=== PATIENT | male | born 1950 | race Caucasian/White ===

== ENCOUNTER 2018-12-12 09:35 | Outpatient (CLI) | payer MEDICARE, OTHER ==
--- NOTE | 2018-12-12 09:47 | XRAY Report ---
Reason: R thumb pain Procedure Date: 12/12/2018 Accession Number: [id number] / [id number] Procedure: XRN - Hand 3 View RT CPT Code: FULL RESULT: EXAM: RIGHT HAND RADIOGRAPHY EXAM DATE: 12/12/2018 08:55 AM. CLINICAL HISTORY: Right thumb pain COMPARISON: None. TECHNIQUE: 3 views. FINDINGS: Bones: No acute fracture. Joints: There is advanced carpal-first metacarpal joint arthropathy with mild lateral subluxation of first metacarpal. Soft Tissues: Normal. No soft tissue swelling. IMPRESSION: 1. No acute fracture. 2. Advanced carpal-first metacarpal joint arthropathy as described above. RADIA
== END 2018-12-12 09:36 | disposition home or self-care (01) ==
LOC: DI.N 09:35
PROVIDERS: ATTEND Internal Medicine
DX: M18.11 Unilateral primary osteoarthritis of first carpometacarpal joint, right hand (principal); M79.644 Pain in right finger(s)

== ENCOUNTER 2019-04-02 08:00 | Outpatient (CLI) | payer MEDICARE, OTHER | END 2019-04-02 23:59 | disposition home or self-care (01) | LOC: LAB.N 08:00 | PROVIDERS: ATTEND Internal Medicine | DX: Z79.01 Long term (current) use of anticoagulants (principal); Z86.718 Personal history of other venous thrombosis and embolism | CPT/HCPCS: 85610 ==

== ENCOUNTER 2020-09-14 10:27 | Outpatient (CLI) | payer MEDICARE, OTHER | END 2020-09-14 10:28 | disposition home or self-care (01) | LOC: LAB.N 10:27 | PROVIDERS: ATTEND Internal Medicine | DX: Z79.01 Long term (current) use of anticoagulants (principal); Z86.718 Personal history of other venous thrombosis and embolism | CPT/HCPCS: 36416; 85610 ==

== ENCOUNTER 2020-10-15 15:07 | Outpatient (CLI) | payer MEDICARE, OTHER | END 2020-10-15 15:08 | disposition home or self-care (01) | LOC: LAB.N 15:07 | PROVIDERS: ATTEND Internal Medicine | DX: Z79.01 Long term (current) use of anticoagulants (principal); Z86.718 Personal history of other venous thrombosis and embolism | CPT/HCPCS: 36416; 85610 ==

== ENCOUNTER 2020-11-03 14:52 | Outpatient (CLI) | payer MEDICARE, OTHER | END 2020-11-03 23:59 | disposition home or self-care (01) | LOC: LAB.N 14:52 | PROVIDERS: ATTEND Internal Medicine | DX: Z51.81 Encounter for therapeutic drug level monitoring (principal); Z79.01 Long term (current) use of anticoagulants; Z86.718 Personal history of other venous thrombosis and embolism | CPT/HCPCS: 85610 ==

== ENCOUNTER 2020-11-30 10:27 | Outpatient (CLI) | payer MEDICARE, OTHER | END 2020-11-30 10:28 | disposition home or self-care (01) | LOC: LAB.N 10:27 | PROVIDERS: ATTEND Internal Medicine | DX: Z79.01 Long term (current) use of anticoagulants (principal); Z86.718 Personal history of other venous thrombosis and embolism | CPT/HCPCS: 85610 ==

== ENCOUNTER 2021-01-06 10:31 | Outpatient (CLI) | payer MEDICARE, OTHER | END 2021-01-06 10:32 | disposition home or self-care (01) | LOC: LAB.N 10:31 | PROVIDERS: ATTEND Internal Medicine | DX: Z79.01 Long term (current) use of anticoagulants (principal); Z86.718 Personal history of other venous thrombosis and embolism | CPT/HCPCS: 85610 ==

== ENCOUNTER 2021-01-13 10:52 | Outpatient (CLI) | payer MEDICARE, OTHER | END 2021-01-13 10:53 | disposition home or self-care (01) | LOC: LAB.N 10:52 | PROVIDERS: ATTEND Internal Medicine | DX: Z79.01 Long term (current) use of anticoagulants (principal); Z86.718 Personal history of other venous thrombosis and embolism | CPT/HCPCS: 36416; 85610 ==

== ENCOUNTER 2021-01-20 10:17 | Outpatient (CLI) | payer MEDICARE, OTHER | END 2021-01-20 10:18 | disposition home or self-care (01) | LOC: LAB.N 10:17 | PROVIDERS: ATTEND Internal Medicine | DX: Z79.01 Long term (current) use of anticoagulants (principal); Z86.718 Personal history of other venous thrombosis and embolism | CPT/HCPCS: 36416; 85610 ==

== ENCOUNTER 2021-02-23 11:32 | Outpatient (CLI) | payer MEDICARE, OTHER | END 2021-02-23 11:33 | disposition home or self-care (01) | LOC: LAB.N 11:32 | PROVIDERS: ATTEND Internal Medicine | DX: Z79.01 Long term (current) use of anticoagulants (principal); Z86.718 Personal history of other venous thrombosis and embolism | CPT/HCPCS: 85610 ==

== ENCOUNTER 2021-03-03 11:04 | Outpatient (CLI) | payer MEDICARE, OTHER | END 2021-03-03 11:05 | disposition home or self-care (01) | LOC: LAB.N 11:04 | PROVIDERS: ATTEND Internal Medicine | DX: Z79.01 Long term (current) use of anticoagulants (principal); Z86.718 Personal history of other venous thrombosis and embolism | CPT/HCPCS: 36416; 85610 ==

== ENCOUNTER 2021-03-17 15:20 | Outpatient (CLI) | payer MEDICARE | END 2021-03-17 15:21 | disposition home or self-care (01) | LOC: LAB.N 15:20 | PROVIDERS: ATTEND Internal Medicine | DX: Z79.01 Long term (current) use of anticoagulants (principal); Z86.718 Personal history of other venous thrombosis and embolism | CPT/HCPCS: 36416; 85610 ==

== ENCOUNTER 2021-04-06 08:11 | Outpatient (CLI) | payer MEDICARE | END 2021-04-06 08:12 | disposition home or self-care (01) | LOC: LAB.N 08:11 | PROVIDERS: ATTEND Internal Medicine | DX: Z53.9 Procedure and treatment not carried out, unspecified reason (principal) ==

== ENCOUNTER 2021-04-06 08:45 | Outpatient (CLI) | payer MEDICARE | END 2021-04-06 23:59 | disposition home or self-care (01) | LOC: LAB.N 08:45 | PROVIDERS: ATTEND Internal Medicine | DX: Z79.01 Long term (current) use of anticoagulants (principal); Z86.718 Personal history of other venous thrombosis and embolism | CPT/HCPCS: 36416; 85610 ==

== ENCOUNTER 2021-04-14 13:56 | Outpatient (CLI) | payer MEDICARE | END 2021-04-14 13:57 | disposition home or self-care (01) | LOC: LAB.N 13:56 | PROVIDERS: ATTEND Internal Medicine | DX: Z79.01 Long term (current) use of anticoagulants (principal); Z86.718 Personal history of other venous thrombosis and embolism | CPT/HCPCS: 36416; 85610 ==

== ENCOUNTER 2021-04-28 15:34 | Outpatient (CLI) | payer MEDICARE | END 2021-04-28 15:35 | disposition home or self-care (01) | LOC: LAB.N 15:34 | PROVIDERS: ATTEND Internal Medicine | DX: Z79.01 Long term (current) use of anticoagulants (principal); Z86.718 Personal history of other venous thrombosis and embolism | CPT/HCPCS: 36416; 85610 ==

== ENCOUNTER 2021-06-02 13:08 | Outpatient (CLI) | payer MEDICARE | END 2021-06-02 13:09 | disposition home or self-care (01) | LOC: LAB.N 13:08 | PROVIDERS: ATTEND Internal Medicine | DX: Z79.01 Long term (current) use of anticoagulants (principal); Z86.718 Personal history of other venous thrombosis and embolism | CPT/HCPCS: 85610 ==

== ENCOUNTER 2021-07-13 11:35 | Outpatient (CLI) | payer MEDICARE | END 2021-07-13 11:36 | disposition home or self-care (01) | LOC: LAB.N 11:35 | PROVIDERS: ATTEND Internal Medicine | DX: Z79.01 Long term (current) use of anticoagulants (principal); Z86.718 Personal history of other venous thrombosis and embolism | CPT/HCPCS: 36416; 85610 ==

== ENCOUNTER 2021-07-15 11:59 | Outpatient (CLI) | payer MEDICARE | END 2021-07-15 12:00 | disposition home or self-care (01) | LOC: LAB.N 11:59 | PROVIDERS: ATTEND Internal Medicine | DX: Z79.01 Long term (current) use of anticoagulants (principal); Z86.718 Personal history of other venous thrombosis and embolism | CPT/HCPCS: 85610 ==

== ENCOUNTER 2021-07-21 13:50 | Outpatient (CLI) | payer MEDICARE | END 2021-07-21 13:51 | disposition home or self-care (01) | LOC: LAB.N 13:50 | PROVIDERS: ATTEND Internal Medicine | DX: Z51.81 Encounter for therapeutic drug level monitoring (principal); Z79.01 Long term (current) use of anticoagulants; Z86.718 Personal history of other venous thrombosis and embolism | CPT/HCPCS: 85610 ==

== ENCOUNTER 2021-07-29 09:48 | Outpatient (CLI) | payer MEDICARE | END 2021-07-29 09:49 | disposition home or self-care (01) | LOC: LAB.N 09:48 | PROVIDERS: ATTEND Internal Medicine | DX: Z79.01 Long term (current) use of anticoagulants (principal); Z86.718 Personal history of other venous thrombosis and embolism | CPT/HCPCS: 36416; 85610 ==

== ENCOUNTER 2021-08-04 13:59 | Outpatient (CLI) | payer MEDICARE | END 2021-08-04 14:00 | disposition home or self-care (01) | LOC: LAB.N 13:59 | PROVIDERS: ATTEND Internal Medicine | DX: Z79.01 Long term (current) use of anticoagulants (principal); Z86.718 Personal history of other venous thrombosis and embolism | CPT/HCPCS: 36416; 85610 ==

== ENCOUNTER 2021-08-11 07:55 | Day surgery (SDC) | payer MEDICARE ==
[~2021-08-11 07:55] MED LIST: CYCLOPENTOLATE 1% OPHTH DROPS 2 ML ONE; KETOROLAC 0.45% OPHTH DROPS ONE; PHENYLEPHRINE 2.5% OPHTH 2 ML DROPS ONE; PROPARACAINE 0.5% OPHTH DROPS 15 ML ONE
[2021-08-11] MEDS ORDERED: LACTATED RINGERS 1,000 ML IV ONE (07:58)
--- NOTE | 2021-08-11 08:22 | ANESTHESIA ---
Pre-Anesthesia VS, & Labs - Diagnosis left senile combined cataract - Procedure left cataract extraction with IOL Vital Signs: Temp Pulse Resp BP Pulse Ox 36.3 C L 69 16 138/88 H 95 08/11/21 08:04 08/11/21 08:04 08/11/21 08:04 08/11/21 08:04 08/11/21 08:04 Height: 5 ft 7 in Weight (kg): 88 kg Body Mass Index: 30.4 BMI Classification: Obese - NPO >8 hours Home Medications and Allergies Home Medications: Ambulatory Orders Losartan [Cozaar] 50 mg PO DAILY 08/10/21 Warfarin [Coumadin] 2.5 mg PO DAILY 08/10/21 Warfarin [Coumadin] 5 mg PO DAILY 08/10/21 Losartan [Cozaar] 50 mg PO DAILY 08/10/21 Warfarin [Coumadin] 2.5 mg PO DAILY 08/10/21 Warfarin [Coumadin] 5 mg PO DAILY 08/10/21 Allergies/Adverse Reactions: Allergies Allergy/AdvReac Type Severity Reaction Status Date / Time Sulfa (Sulfonamide Allergy Rash Verified 08/10/21 12:46 Antibiotics) Anes History & Medical History - Anesthetic History Anesthesia Complications: reports: No previous complications - Medical History Cardiovascular: reports: Hypertension Pulmonary: reports: None, Other (history of PE) Gastrointestinal: reports: None Urinary: reports: Other 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
[2021-08-11] MEDS ORDERED: MIDAZOLAM 2 MG/2 ML VIAL ONE (09:14)
[2021-08-11] MEDS ORDERED: BRIMONIDINE 0.2% OPHTH DROPS 5 ML OPTH ONE (09:37)
[2021-08-11] MEDS ORDERED: TRIAMCIN/MOXIFLOX OPHTHALMIC 0.6 ML VIAL IO ONE ×2 (09:38→10:33)
[2021-08-11] MEDS ORDERED: EPINEPHrine 1 MG/ML AMP IR ONE (09:38)
[2021-08-11] MEDS ORDERED: VANCOMYCIN OPHTHALMI 8MG/0.8ML 8 MG/0.8 ML SYRINGE IO ONE (09:38)
[2021-08-11] MEDS ORDERED: TIMOLOL 0.5% OPHTH DROPS OPTH ONE (09:38)
[2021-08-11] MEDS ORDERED: PROPARACAINE 0.5% OPHTH DROPS 15 ML EACHEYE ONE (09:38)
[2021-08-11] MEDS ORDERED: BSS/LIDOCAINE/EPINEPHRINE 1 ML SYRINGE IO ONE (09:38)
[2021-08-11] MEDS ORDERED: LACTATED RINGERS 800 ML IV ONE (09:49)
[2021-08-11 09:51] VITALS: BP 129/82
--- NOTE | 2021-08-11 10:03 | OPERATIVE REPORT ---
Operative Report - Other Other Information/Narrative: Date of Surgery: 08/11/21 Preop Dx: Visually significant cataract left eye. This was the first cataract surgery. Postop Dx: Same Procedure: Phacoemulsification with posterior chamber intraocular lens implant left eye Surgeon: Dr. Ja Leiva Anesthesia: Monitored anesthesia care Complications: None Operative Indications: This is a 71-year-old M with progressive vision loss in the left eye due to 2+ nuclear sclerotic and 3+ cortical cataract. Best corrected visual acuity was 20/30 with glare to 20/100 vision in the left eye. Indications for surgery were: - Difficulty seeing words on a computer screen - Difficulty reading - Difficulty driving in low light or at night - Difficulty driving at night because of headlights from other vehicles - Difficulty tracking a golf ball The patient was consented at length concerning the risks and benefits of cataract surgery after which the patient expressed a desire to proceed with surgery. Operative Procedure: The patient was taken into OR#3 and placed under monitored anesthesia care. A surgical time-out was conducted confirming correct patient, correct procedure, and correct surgical site. The patient was given topical anesthesia and then prepped and draped in the usual sterile fashion. The eye was entered at the 6 and 3 oclock positions. Intracameral Shugarcaine was injected into the anterior chamber followed by a dispersive viscoelastic. A continuous-tear curvilinear capsulorhexis was performed. The nucleus was hydrodissected and phacoemulsified. The cortex was evacuated using automated infusion and aspiration. A cohesive viscoelastic was injected into the capsular bag and a 20.0 diopter intraocular lens was inserted into the bag. Infusion and aspiration were used to evacuate the viscoelastic materials from the eye. The wounds were hydrated and the eye inflated to physiologic pressure using balanced salt solution. Approximately 0.25ml of a mixture of triamcinolone and moxifloxacin was injected trans-sclerally into the vitreous in the inferotemporal quadrant using a 30 gauge cannula. An additional 0.55ml of a mixture of triamcinolone, moxifloxacin, and vancomycin was injected subconjunctivally in the superior quadrant for infection and inflammation prophylaxis. Wound integrity was checked with Weck-Mariam sponges. The patient was taken from the operating room in good condition and given post-op instructions.
[2021-08-11] MEDS ORDERED: BRIMONIDINE 0.2% OPHTH DROPS 5 ML ONE (10:33)
[2021-08-11] MEDS ORDERED: BSS/LIDOCAINE/EPINEPHRINE 1 ML VIAL ONE (10:34)
[2021-08-11] MEDS ORDERED: TIMOLOL 0.5% OPHTH DROPS ONE (10:34)
--- NOTE | 2021-08-11 11:59 | ANESTHESIA POST OP EVALUATION ---
Anesthesia Post Eval - Post Anesthesia Eval Vitals: Last Vital Signs Temp 36.6 C 08/11/21 09:50 Pulse 72 08/11/21 09:50 Resp 16 08/11/21 09:50 BP 129/82 H 08/11/21 09:50 Pulse Ox 94 08/11/21 09:50 CV Function Including HR & BP: Stable Pain Control: Satisfactory Nausea & Vomiting: Negative Mental Status: Baseline Respiratory Status: Airway Patent Hydration Status: Satisfactory Anesthesia Complications: None
== END 2021-08-11 07:56 | disposition home or self-care (01) ==
LOC: SDS 07:55
PROVIDERS: ATTEND Ophthalmology
DX: H25.812 Combined forms of age-related cataract, left eye (principal); Q79.60 Ehlers-Danlos syndrome, unspecified; Z86.711 Personal history of pulmonary embolism; Z79.01 Long term (current) use of anticoagulants; E66.9 Obesity, unspecified; Z68.30 Body mass index [BMI] 30.0-30.9, adult
CPT/HCPCS: 66984; A9270; J3490; J7120

== ENCOUNTER 2021-08-30 13:42 | Outpatient (CLI) | payer MEDICARE | END 2021-08-30 13:43 | disposition home or self-care (01) | LOC: LAB.N 13:42 | PROVIDERS: ATTEND Internal Medicine | DX: Z79.01 Long term (current) use of anticoagulants (principal); Z86.718 Personal history of other venous thrombosis and embolism | CPT/HCPCS: 36416; 85610 ==

== ENCOUNTER 2021-11-04 17:06 | Outpatient (CLI) | payer MEDICARE ==
--- NOTE | 2021-11-04 18:05 | Ultrasound Report ---
PROCEDURE: Duplex Ext Veins Right INDICATIONS: RIGHT LEG PAIN TECHNIQUE: Real-time imaging, as well as color and pulse Doppler interrogation, were performed of the lower extr emity deep veins from the inguinal ligament to the popliteal fossa. COMPARISON: None. FINDINGS: The deep veins are normally compressible, and free of intraluminal thrombus. Color and pu lse Doppler demonstrate normal phasic intraluminal flow. There is normal augmentation response to di stal compression maneuver. Superficial venous thrombosis can be seen within the greater saphenous vein at the level of the proxi mal calf to the mid calf. IMPRESSION: No findings of deep venous thrombosis are seen. Superficial venous thrombosis can be seen within the greater saphenous vein at the level of the calf. Reviewed by: Shiva Aj MD on 11/04/2021 5:03 PM [facility] Approved by: Shiva Aj MD on 11/04/2021 5:03 PM [facility] Station ID: [id number]
== END 2021-11-04 17:07 | disposition home or self-care (01) ==
LOC: DI 17:06
PROVIDERS: ATTEND Internal Medicine
DX: I82.811 Embolism and thrombosis of superficial veins of right lower extremity (principal)

== ENCOUNTER 2021-11-30 15:39 | Outpatient (CLI) | payer MEDICARE | END 2021-11-30 15:40 | disposition home or self-care (01) | LOC: LAB.N 15:39 | PROVIDERS: ATTEND Internal Medicine | DX: Z79.01 Long term (current) use of anticoagulants (principal); Z86.718 Personal history of other venous thrombosis and embolism | CPT/HCPCS: 85610 ==

== ENCOUNTER 2021-12-22 11:19 | Outpatient (CLI) | payer MEDICARE | END 2021-12-22 11:20 | disposition home or self-care (01) | LOC: LAB.N 11:19 | PROVIDERS: ATTEND Internal Medicine | DX: Z79.01 Long term (current) use of anticoagulants (principal); Z86.718 Personal history of other venous thrombosis and embolism | CPT/HCPCS: 85610 ==

== ENCOUNTER 2022-03-16 10:20 | Outpatient (CLI) | payer MEDICARE, OTHER | END 2022-03-16 10:21 | disposition home or self-care (01) | LOC: LAB.N 10:20 | PROVIDERS: ATTEND Internal Medicine | DX: Z79.01 Long term (current) use of anticoagulants (principal); Z86.718 Personal history of other venous thrombosis and embolism | CPT/HCPCS: 36416; 85610 ==

== ENCOUNTER 2022-04-05 10:11 | Outpatient (CLI) | payer MEDICARE, OTHER | END 2022-04-05 10:12 | disposition home or self-care (01) | LOC: LAB.N 10:11 | PROVIDERS: ATTEND Internal Medicine | DX: Z79.01 Long term (current) use of anticoagulants (principal); Z86.718 Personal history of other venous thrombosis and embolism | CPT/HCPCS: 36416; 85610 ==

== ENCOUNTER 2022-05-03 10:19 | Outpatient (CLI) | payer MEDICARE, OTHER | END 2022-05-03 10:20 | disposition home or self-care (01) | LOC: LAB.N 10:19 | PROVIDERS: ATTEND Internal Medicine | DX: Z79.01 Long term (current) use of anticoagulants (principal); Z86.718 Personal history of other venous thrombosis and embolism | CPT/HCPCS: 36416; 85610 ==

== ENCOUNTER 2022-06-14 11:13 | Outpatient (CLI) | payer MEDICARE, OTHER | END 2022-06-14 11:14 | disposition home or self-care (01) | LOC: LAB.N 11:13 | PROVIDERS: ATTEND Internal Medicine | DX: Z79.01 Long term (current) use of anticoagulants (principal); Z86.718 Personal history of other venous thrombosis and embolism | CPT/HCPCS: 36416; 85610 ==

== ENCOUNTER 2022-08-03 10:16 | Outpatient (CLI) | payer MEDICARE, OTHER | END 2022-08-03 10:17 | disposition home or self-care (01) | LOC: LAB.N 10:16 | PROVIDERS: ATTEND Internal Medicine | DX: Z79.01 Long term (current) use of anticoagulants (principal); Z86.718 Personal history of other venous thrombosis and embolism | CPT/HCPCS: 36416; 85610 ==

== ENCOUNTER 2022-09-26 10:24 | Outpatient (CLI) | payer MEDICARE, OTHER | END 2022-09-26 10:25 | disposition home or self-care (01) | LOC: LAB.N 10:24 | PROVIDERS: ATTEND Internal Medicine | DX: Z79.01 Long term (current) use of anticoagulants (principal); Z86.718 Personal history of other venous thrombosis and embolism | CPT/HCPCS: 36416; 85610 ==

== ENCOUNTER 2022-10-19 09:51 | Outpatient (CLI) | payer MEDICARE, OTHER ==
[2022-10-19 12:21] LABS: CHOL/HDL RATIO 6.6 (<5.0); CHOLESTEROL 226 mg/dL; HDL CHOLESTEROL 34 mg/dL; LDL CHOLESTEROL,CALCULATED 146 mg/dL; LDL/HDL RATIO 4.3 (<3.6); TRIGLYCERIDES 231 mg/dL (48-352); VLDL CHOLESTEROL 46 mg/dL
[2022-10-19 12:33] LABS: THYROID STIMULATING HORMONE 1.67 uIU/mL (0.34-5.60)
== END 2022-10-19 09:52 | disposition home or self-care (01) ==
LOC: LAB.N 09:51
PROVIDERS: ATTEND Internal Medicine Cardiovascular Disease
DX: I10 Essential (primary) hypertension (principal)
CPT/HCPCS: 36415; 80061; 83721; 83735; 84443

== ENCOUNTER 2022-11-03 08:06 | Outpatient (CLI) | payer MEDICARE, OTHER ==
[2022-11-03 13:22] LABS: ALBUMIN 4.1 g/dL (3.2-5.5); ALBUMIN/GLOBULIN RATIO 1.5 (1.0-2.2); ALKALINE PHOSPHATASE 60 IU/L (42-121); ALT ALANINE AMINOTRANSFERASE 18 IU/L (10-60); AST ASPARTATE AMINOTRANSFERASE 22 IU/L (10-42); BILIRUBIN,TOTAL 0.9 mg/dL (0.2-1.0); BUN - BLOOD UREA NITROGEN 24 mg/dL (6-20); CALCIUM 9.2 mg/dL (8.5-10.3); CARBON DIOXIDE - CO2 27 mmol/L (21-32); CHLORIDE 105 mmol/L (101-111); CHOL/HDL RATIO 6.5 (<5.0); CHOLESTEROL 226 mg/dL; CREATININE 0.8 mg/dL (0.6-1.3); GFR - MDRD 94 (>89); GLUCOSE 108 mg/dL (74-104); HDL CHOLESTEROL 35 mg/dL; LDL CHOLESTEROL,CALCULATED 152 mg/dL; LDL/HDL RATIO 4.3 (<3.6); POTASSIUM 4.4 mmol/L (3.5-4.5); SODIUM 138 mmol/L (135-145); TOTAL PROTEIN 6.9 g/dL (6.4-8.9); TRIGLYCERIDES 194 mg/dL (48-352); VLDL CHOLESTEROL 39 mg/dL
== END 2022-11-03 08:07 | disposition home or self-care (01) ==
LOC: LAB.N 08:06
PROVIDERS: ATTEND Internal Medicine Cardiovascular Disease
DX: I11.9 Hypertensive heart disease without heart failure (principal); Z79.01 Long term (current) use of anticoagulants; I47.29 Other ventricular tachycardia; Z86.718 Personal history of other venous thrombosis and embolism
CPT/HCPCS: 36415; 80053; 80061; 83721; 85610

== ENCOUNTER 2022-12-14 11:00 | Outpatient (CLI) | payer MEDICARE, OTHER | END 2022-12-14 11:01 | disposition home or self-care (01) | LOC: LAB.N 11:00 | PROVIDERS: ATTEND Internal Medicine | DX: Z79.01 Long term (current) use of anticoagulants (principal); Z86.718 Personal history of other venous thrombosis and embolism | CPT/HCPCS: 36416; 85610 ==

== ENCOUNTER 2023-01-18 11:16 | Outpatient (CLI) | payer MEDICARE, OTHER | END 2023-01-18 11:17 | disposition home or self-care (01) | LOC: LAB.N 11:16 | PROVIDERS: ATTEND Internal Medicine | DX: Z79.01 Long term (current) use of anticoagulants (principal); Z86.718 Personal history of other venous thrombosis and embolism | CPT/HCPCS: 36415; 85610 ==

== ENCOUNTER 2023-02-06 10:06 | Outpatient (CLI) | payer MEDICARE, OTHER | END 2023-02-06 10:07 | disposition home or self-care (01) | LOC: LAB.N 10:06 | PROVIDERS: ATTEND Internal Medicine | DX: Z79.01 Long term (current) use of anticoagulants (principal); Z86.718 Personal history of other venous thrombosis and embolism | CPT/HCPCS: 36416; 85610 ==

== ENCOUNTER 2023-02-15 09:46 | Outpatient (CLI) | payer MEDICARE, OTHER | END 2023-02-15 09:47 | disposition home or self-care (01) | LOC: LAB.N 09:46 | PROVIDERS: ATTEND Internal Medicine | DX: Z79.01 Long term (current) use of anticoagulants (principal); Z86.718 Personal history of other venous thrombosis and embolism | CPT/HCPCS: 36416; 85610 ==

== ENCOUNTER 2023-02-23 14:55 | Outpatient (CLI) | payer MEDICARE, OTHER | END 2023-02-23 14:56 | disposition home or self-care (01) | LOC: LAB.N 14:55 | PROVIDERS: ATTEND Internal Medicine | DX: Z51.81 Encounter for therapeutic drug level monitoring (principal); Z79.01 Long term (current) use of anticoagulants; Z86.718 Personal history of other venous thrombosis and embolism | CPT/HCPCS: 36416; 85610 ==

== ENCOUNTER 2023-03-20 11:52 | Outpatient (CLI) | payer MEDICARE, OTHER | END 2023-03-20 11:53 | disposition home or self-care (01) | LOC: LAB.N 11:52 | PROVIDERS: ATTEND Internal Medicine | DX: Z51.81 Encounter for therapeutic drug level monitoring (principal); Z79.01 Long term (current) use of anticoagulants; Z86.718 Personal history of other venous thrombosis and embolism | CPT/HCPCS: 36415; 36416; 85610 ==

== ENCOUNTER 2023-04-09 11:09 | Outpatient (CLI) | payer MEDICARE, OTHER | END 2023-04-09 11:10 | disposition home or self-care (01) | LOC: LAB.N 11:09 | PROVIDERS: ATTEND Internal Medicine | DX: Z51.81 Encounter for therapeutic drug level monitoring (principal); Z79.01 Long term (current) use of anticoagulants; Z86.718 Personal history of other venous thrombosis and embolism | CPT/HCPCS: 36416; 85610 ==

== ENCOUNTER 2023-04-18 10:35 | Outpatient (CLI) | payer MEDICARE, OTHER | END 2023-04-18 10:36 | disposition home or self-care (01) | LOC: LAB.N 10:35 | PROVIDERS: ATTEND Internal Medicine | DX: Z51.81 Encounter for therapeutic drug level monitoring (principal); Z79.01 Long term (current) use of anticoagulants; Z86.718 Personal history of other venous thrombosis and embolism | CPT/HCPCS: 36416; 85610 ==

== ENCOUNTER 2023-05-10 11:38 | Outpatient (CLI) | payer MEDICARE, OTHER | END 2023-05-10 11:39 | disposition home or self-care (01) | LOC: LAB.N 11:38 | PROVIDERS: ATTEND Internal Medicine | DX: Z51.81 Encounter for therapeutic drug level monitoring (principal); Z79.01 Long term (current) use of anticoagulants; Z86.718 Personal history of other venous thrombosis and embolism | CPT/HCPCS: 36416; 85610 ==

== ENCOUNTER 2023-05-13 13:26 | Outpatient (CLI) | payer MEDICARE, OTHER ==
--- NOTE | 2023-05-13 17:00 | Ultrasound Report ---
PROCEDURE: Arterial Duplex Lwr Ext BL INDICATIONS: THIGH PAIN TECHNIQUE: Color and pulse Doppler interrogation was performed of both lower extremity arterial systems, with im age documentation. COMPARISON: None FINDINGS: Right lower extremity: Common femoral artery: 105 cm/sec, with triphasic flow. Deep femoral artery: 56 cm/sec, with biphasic flow. Proximal superficial femoral artery: 73 cm/sec, with triphasic flow. Mid superficial femoral artery: 67 cm/sec, with triphasic flow. Distal superficial femoral artery: 60 cm/sec, with triphasic flow. Popliteal artery: 37 cm/sec, with triphasic flow. Posterior tibial artery: 78 cm/sec, with triphasic flow. Anterior tibial artery/dorsalis pedis: 32/46 cm/sec, with triphasic /biphasic flow. Peterson-scale imaging description: No significant stenosis Left lower extremity: Common femoral artery: 134 cm/sec, with triphasic flow. Deep femoral artery: 66 cm/sec, with triphasic flow. Proximal superficial femoral artery: 67 cm/sec, with triphasic flow. Mid superficial femoral artery: 73 cm/sec, with triphasic flow. Distal superficial femoral artery: 50 cm/sec, with triphasic flow. Popliteal artery: 45 cm/sec, with triphasic flow. Posterior tibial artery: 34 cm/sec, with triphasic flow. Anterior tibial artery/dorsalis pedis: 36/35 cm/sec, with biphasic/triphasic flow. Peterson-scale imaging description: No significant stenosis. IMPRESSION: No hemodynamically cemented stenosis. Reviewed by: Maldonado Mckee MD on 05/13/2023 4:59 PM PST Approved by: Maldonado Mckee MD on 05/13/2023 4:59 PM PST Station ID: [id number]
== END 2023-05-13 13:27 | disposition home or self-care (01) ==
LOC: DI 13:26
PROVIDERS: ATTEND Internal Medicine
DX: M79.659 Pain in unspecified thigh (principal); R09.89 Other specified symptoms and signs involving the circulatory and respiratory systems
CPT/HCPCS: 93925

== ENCOUNTER 2023-07-31 10:56 | Outpatient (CLI) | payer MEDICARE, OTHER | END 2023-07-31 10:57 | disposition home or self-care (01) | LOC: LAB.N 10:56 | PROVIDERS: ATTEND Internal Medicine | DX: Z51.81 Encounter for therapeutic drug level monitoring (principal); Z79.01 Long term (current) use of anticoagulants; Z86.718 Personal history of other venous thrombosis and embolism | CPT/HCPCS: 36416; 85610 ==

== ENCOUNTER 2023-09-05 10:20 | Outpatient (CLI) | payer MEDICARE, OTHER | END 2023-09-05 10:21 | disposition home or self-care (01) | LOC: LAB.N 10:20 | PROVIDERS: ATTEND Internal Medicine | DX: Z51.81 Encounter for therapeutic drug level monitoring (principal); Z79.01 Long term (current) use of anticoagulants; Z86.718 Personal history of other venous thrombosis and embolism | CPT/HCPCS: 36416; 85610 ==